=== PATIENT | female | born 1955 | race African-American/Black ===

== ENCOUNTER → 2018-02-26 | Day surgery (SDC) | payer OTHER ==
[~2018-02-26] VITALS: Ht 170.2 cm; Wt 103.7 kg
[~2018-02-26] MED LIST: ACETAMINOPHEN 1000 MG/100 ML 100 ML IV ONE; ACETAMINOPHEN/HYDROcodone 325 MG/5 MG TAB PO PRN; BUPIVACAINE HCL PF 0.5% 30 ML VIAL ONE; CALC600T5; CHLORHEXIDINE GLUCONATE 2 % 1 PACK (2 CLOTHS) TOPICAL PRN; CHOL10008; DEXAMETHASONE SOD PHOS 4 MG/ML VIAL IV ONE; DO NOT ADM ANY ANTICOAGULANT DRUGS PRN; FAMOTIDINE 20 MG/2 ML VIAL ONE; HYDR-3288 PO; KETOROLAC TROMETHAMINE 30 MG/ML (IVP) VIAL IV PUSH ONE; LACTATED RINGER'S 1000 ML IV PRN; LIDOCAINE HCL 1% PF 5 ML SYRINGE OTHER ONE; LIDOCAINE HCL 2% 50 ML VIAL ONE; MEPERIDINE HCL 50 MG/ML VIAL IM PRN; METOPROLOL TARTRATE 25 MG TAB PO PRN; MIDAZOLAM HCL 2 MG/2 ML VIAL ONE; MULTTAB67 PO; ONDANSETRON HCL 4 MG/2 ML VIAL IV PUSH ONE; PHENYLEPH/NS 1000 MCG/10 ML SYR IV ONE; POVIDONE IODINE 5% (ANTISEPSIS KIT) 4 APPLICATIONS EACH NARE PRN; PROPOFOL 200 MG/20 ML AMP IV ONE; SODIUM CHLORID 0.9% 500 ML IV PRN; SODIUM CHLORIDE FLUSH BID IV FLUSH SCH; SODIUM CHLORIDE FLUSH PRN IV FLUSH; Z.0.NO CURRENT MEDS; ceFAZolin 1,000 MG/NS 100 ML IV SCH; ceFAZolin INJ 1,000 MG VIAL IV ONE; ePHEDrine/NS 25 MG/5 ML SYRINGE IV ONE
--- NOTE | 2018-02-26 13:04 | MP ---
cc: Marcus Lyon MD DATE OF OPERATION: 02/26/2018 PREOPERATIVE DIAGNOSIS: Left fifth proximal phalanx fracture. POSTOPERATIVE DIAGNOSIS: Left fifth proximal phalanx fracture. PROCEDURE PERFORMED: 1. Left fifth proximal phalanx closed reduction with manipulation. 2. Percutaneous pinning, left fifth proximal phalanx. 3. Use of image intensifier. SURGEON: Marcus Lyon III, MD. DESCRIPTION OF PROCEDURE: The patient was brought to the operating room, placed supine on the operating table. After the correct site and site of surgery were verified by members of each team in the room multiple times including the patient myself and after adequate preoperative markings, preoperative written consent was verified by everyone and after adequate preoperative timeout was performed to everyone's satisfaction and after adequate anesthesia had been achieved, the left upper extremity was prepped and draped in the traditional sterile surgical fashion. The mini C-arm was used to verify the site of the intended procedure. A 50/50 mixture of 2% plain lidocaine and 0.5% plain Marcaine was infiltrated in the skin and subcutaneous tissue in the area of the fracture, as well as proximal to it. Manipulation was then performed in a closed fashion. The proximal phalanx was then reduced to a natural anatomic orientation. This was done under real time fluoroscopic guidance. Two separate 0.035 cm K-wires at differing angles were advanced in an antegrade fashion under mini C-arm guidance. They were tailored to length, cut and bent. Jurgan balls were applied. Passive range of motion revealed full range of motion and no evidence of any malangulation or malrotation. Capillary refill was less than 2 seconds in the fingertips at all times. Betadine and Xeroform was applied around the pin sites. Final x-rays were obtained. A very well-padded, well-molded protective volar and ulnar gutter type splint was made in the usual fashion. The patient was awakened from anesthesia and transported to the postanesthesia care unit awake and in stable condition at the end of the case. The sponge, needle and instrument counts were correct at the end of the case as reported by the nurses in the room. Marcus Lyon MD LCB/ANA MARIA Jones: 02/26/2018, 12:47 PM , 01:04 PM
[2018-02-26 14:40] VITALS: BP 114/78; PULSE 72; RESP 16; TEMP 97.8; O2SAT 100
--- NOTE | 2018-02-26 18:47 | EKG ---
Date Performed: 02/26/2018 Time Performed: 11:45:16 PTAGE: 62 years EKG: SINUS BRADYCARDIA NONSPECIFIC T-WAVE ABNORMALITY Since the previous tracing, no significant change noted BORDERLINE ECG PREVIOUS TRACING : 01/21/2007 00.35 DOCTOR: oTny Dupont Interpretating Date/Time 02/26/2018 18:44:42
== END | disposition home or self-care (01) ==
LOC: HSDC 10:36
PROVIDERS: ATTEND Orthopaedic Surgery Hand Surgery
DX: S62.617A Displaced fracture of proximal phalanx of left little finger, initial encounter for closed fracture (principal); R94.31 Abnormal electrocardiogram [ECG] [EKG]; W01.0XXA Fall on same level from slipping, tripping and stumbling without subsequent striking against object, initial encounter
CPT/HCPCS: 01830; 26735; 76000; 93005; J0131; J0690; J1100; J1885; J2250; J2370; J2405; J3010; J7120